=== PATIENT | female | born 1935 | race Caucasian/White ===

== ENCOUNTER 2018-03-05 01:45 | Day surgery (SDC) | payer MEDICARE, BC ==
[~2018-03-05] VITALS: Ht 165.1 cm; Wt 64.0 kg
[~2018-03-05 01:45] MED LIST: ASCO-191 PO; CALC250T7 PO; CHOL500016 PO; ESC10 PO; ESOM40CA42 PO; FURO20TA19 PO; HYDR-4309 PO; OMEP40CA48 PO; POTA10CA24 PEG; TURM1CAP PO; ZOLP-360 PO
[2018-03-05] MEDS ORDERED: BACITRACIN/POLYMY B OINT 15 GM TP ONE (07:54)
[2018-03-05] MEDS ORDERED: ROPIVACAINE 0.2% 20 ML VIAL ONE (07:54)
[2018-03-05] MEDS ORDERED: ONDANSETRON 4 MG/2 ML VIAL ONE (08:04)
[2018-03-05] MEDS ORDERED: PROPOFOL EMUL(*) 10MG/ML 20 ML 40 ML ONE (08:04)
[2018-03-05] MEDS ORDERED: DEXAMETHASONE SOD 4 MG/ML VIAL ONE (08:04)
[2018-03-05] MEDS ORDERED: LIDOCAINE MPF 1% 5 ML VIAL ONE (08:04)
[2018-03-05 08:05] VITALS: BP 140/86
[2018-03-05] MEDS ORDERED: FAMOTIDINE 20 MG TAB PO ONE (08:40)
[2018-03-05] MEDS ORDERED: LIDOCAINE/SOD BICARB 8.4% SYR ID ONE (08:40)
[2018-03-05] MEDS ORDERED: MIDAZOLAM 2 MG/2 ML VIAL IVP PRN (08:40)
[2018-03-05] MEDS ORDERED: ceFAZolin(*) 1 GM VIAL 1 GM in NS(*) 0.9% 100 ML ADDVANT BAG 100 ML IVPB ONE (08:40)
[2018-03-05] MEDS ORDERED: NORMOSOL R SOLN(*) 1000 ML BAG 1,000 ML IV PRN (08:40)
[2018-03-05] MEDS ORDERED: fentaNYL CITR 100 MCG/2 ML AMP ONE (09:06)
[2018-03-05] MEDS ORDERED: BUPIVACAIN 0.25% INJ 50ML VIAL ONE (09:20)
[2018-03-05] MEDS ORDERED: LIDOCAINE 1%MDV(*)200 MG/20 ML 1 ML ONE (09:20)
[2018-03-05 10:52] VITALS: BP 128/68
[2018-03-05 11:20] VITALS: BP 134/88
[2018-03-05 11:22] VITALS: BP 144/77
[2018-03-05] MEDS ORDERED: HYDR-385 PO (11:40)
[2018-03-05] MEDS ORDERED: CEPH500T7 PO (11:41)
--- NOTE | 2018-03-05 15:17 | OPERATIVE REPORT 1 ---
EVENT DATE: March 05, 2018 SURGEON: Stefan Guerrero MD ANESTHESIOLOGIST: ANESTHESIA: Monitored anesthesia care. LIFT TEAM TECHNICIAN: Evan Alonzo PA-C PREOPERATIVE DIAGNOSIS Chronic degenerative joint disease, right index proximal interphalangeal joint with possible fusion. 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 PROCEDURE PERFORMED Right index proximal interphalangeal joint silastic arthroplasty with transosseous augmentation of radial collateral ligament. ESTIMATED BLOOD LOSS Minimal. INTRAVENOUS FLUIDS Crystalloid 750, no colloid. TOURNIQUET TIME None (Tourni-Cot for 55 minutes). SPECIMENS No specimens. COMPLICATIONS No complications. IMPLANTS USED Size 1 right silastic arthroplasty. SUMMARY OF PROCEDURE The patient was brought into the operating room and placed on the OR table in the supine position with a hand table at her right side. After obtaining adequate intravenous sedation, a 50:50 mix of lidocaine and Marcaine was infiltrated into the proximal aspect of the index finger to effect a digital block. Her arm was then prepared with a standard prep and drape. A medium Tourni-Cot was slid down over the index finger and secured. We then made a dorsal curved incision, leaving the specialized tissue over the PIP extension crease intact. The ulnar-based flap was retracted. I then made a longitudinal split of the extensor mechanism, releasing the scarred down central slip insertion from the large osteophytes on the dorsal surface of the PIP joint. When we fully exposed this, it did not appear to move at all. I was concerned that perhaps this was at a full bone union, but when I stressed it a bit, we could see micromotion at the joint, and then eventually I just pushed down until the fibrous tissue that had caused it serve as a near fusion to tear. Once we had this open, we were able to trim off osteophytes and get down to a more natural shape of bone. We had to remove a bit of the radial side of the middle phalanx and a large volar osteophyte and a lot of dorsal osteophyte. On the distal end of the proximal phalanx, there was also a large flare of osteophyte formation. After assessing the amount of space available for the implant, it was clear that we would have to remove bone, and her bone was surprisingly hard. I used an oscillating saw to resect a bit of the distal aspect of the proximal phalanx right down to the margin of the collateral ligaments, creating a back cut sloping more proximal on the volar aspect. We then proceeded to fenestrate the medullary canal with an awl, and we had to use a blunt leader tip anny as well as rongeurs to prepare the bone. Ultimately, we got up to size 1 which seemed to fit quite well, and I flared the margins of the hole for the shoulder of the implant. Once it fit nicely, we moved on to the distal aspect. Once again, we had to use a drill to get into the bone because of the rigidity of the bone and then worked with a broach after that. Once we had it sized to the proper fit, we tested with a trial, and it seemed to fit very nicely other than the fact that she still had a tendency for ulnar deviation. We then removed the trial and cleaned the bone. A 0.028-inch K- wire was used to create a drill hole in the proximal aspect of the middle phalanx for passage of a 4-0 FiberWire suture that would be used to augment the radial collateral ligament using a transosseous technique, and then we also placed two drill holes at the previous location of the central slip insertion, but these were not yet secured. We just passed them up through the margins of the extensor mechanism. The final implant was then placed and secured. The collateral ligament was advanced and secured, and then we repaired the extensor mechanism using 4-0 FiberWire suture and finally at the end tied the central slip attachment back to the bone. The wound was irrigated again as it had been throughout the process. We then removed the Tourni-Cot, controlled bleeding with bipolar cautery, and closed skin with nylon. She was given a dry, sterile dressing and a radial gutter splint. She was then transferred to the recovery area in stable condition. ANTHONY
== END 2018-03-05 12:18 | disposition home or self-care (01) ==
LOC: OR 01:45
PROVIDERS: ATTEND Orthopaedic Surgery Hand Surgery
DX: M19.041 Primary osteoarthritis, right hand (principal); Z79.01 Long term (current) use of anticoagulants; I10 Essential (primary) hypertension
CPT/HCPCS: 26535; 36416; 76000; 82948; A4565; A9270; C1776; J0690; J2001; J2405; J2704; J2795; J3010; J3490; J7050; J1100